=== PATIENT | female | born 1995 | race Caucasian/White ===

== ENCOUNTER 2016-07-24 07:02 | Emergency (ER) | payer BC, OTHER ==
[~2016-07-24] VITALS: Ht 165.1 cm; Wt 75.1 kg
[2016-07-24 07:03] VITALS: Ht 165.1 cm; Wt 75.1 kg
[2016-07-24] MEDS ORDERED: ONDANSETRON INJ 2 MG/ML 2 ML VIAL IV STA (07:21)
[2016-07-24] MEDS ORDERED: KETOROLAC TROMETHAMINE 30 MG/ML VIAL IV STA (07:21)
[2016-07-24] MEDS ORDERED: SODIUM CHLORIDE 0.9% 1000ML 1,000 ML IV STA (07:21)
[2016-07-24 07:27] LABS: COMPLETE YES; EOS % 0.1 %; IG% 0.2 %; LYMPH % 4.1 %; LYMPH ABS # 0.36 K/uL (1.2-3.4); MEAN CELL VOLUME 83.8 fL (80-100); MEAN CORPUSCULAR HEMOGLOBIN 29.6 pg (25-34); MEAN CORPUSCULAR HGB CONC 35.3 g/dl (32-36); MEAN PLATELET VOLUME 11.6 fL (7.4-10.4); MONO % 4.6 %; PLATELET COUNT 202 K/uL (130-400); RED BLOOD COUNT 5.13 M/uL (4.2-5.4)
[2016-07-24 07:43] LABS: BUN/CREATININE RATIO 25.7 (10-20); CALCIUM 9.2 mg/dl (8.5-10.1); CREATININE 0.69 mg/dl (0.60-1.20)
[2016-07-24] MEDS ORDERED: PROM25TA9 PO (08:17)
--- NOTE | 2016-07-24 08:35 | EMERGENCY ROOM VISIT NOTE ---
History First contact with patient: 07:11 Chief Complaint: VOMITING Stated Complaint: VOMITING,DIARRHEA SINCE 10PM Nursing Triage Summary: Patient reports n/v/d since 2229 last night. Denies any pain History of Present Illness The patient is a 20 year old female who presents to the Emergency Room with complaints of approximately 8 hours of nausea, vomiting and watery diarrhea. The patient reports that her symptoms started around 10:30 PM last evening. She has had vomiting approximately every 30 minutes. She reports feeling very dehydrated. She has not noticed any blood in her stools or vomitus. She did feel feverish around 9 PM. The patient just returned from a cruise to [place]. Her parents were with her, and the parents deny any current symptoms. She denies any other known sick contacts. She currently also reports dizziness, weakness, fatigue and lightheadedness. The patient denies . She denies any abdominal pain, back pain, chest pain, cough, shortness of breath, neck pain or headache. Review of Systems HEENT: Denies visual problems, hearing loss, tinnitus. Denies difficulty swallowing or oral lesions. PULMONARY: Denies cough, shortness of breath, sputum production or hemoptysis. CARDIOVASCULAR: Denies chest pain, palpitations, dyspnea on exertion, orthopnea or peripheral edema. GASTROINTESTINAL: See history of present illness. GENITOURINARY: Denies dysuria, frequency, urgency or nocturia. NEUROLOGIC: Denies history of epilepsy, CVA, TIA or chronic headaches. MUSCULOSKELETAL: Denies history of joint tenderness/swelling. SKIN: Denies rashes or lesions. PSYCHIATRIC: Denies history of depression or mental illness. ENDOCRINE: Denies history of diabetes or thyroid disorders. Past Medical/Surgical History Medical Problems: (1) No significant past medical history Surgical Problems: (1) History of tonsillectomy and adenoidectomy Family History Unremarkable Social History Smoking Status: Never Smoker Alcohol Use: none Marital Status: single Occupation Status: [employer] student Current/Historical Medications Scheduled PRN Promethazine Hcl (Phenergan), 25 MG PO Q6H PRN for Nausea Allergies Coded Allergies: No Known Allergies (Unverified , 07/24/16) Physical Exam Vital Signs Date Time Temp Pulse Resp B/P Pulse Ox O2 Delivery O2 Flow Rate FiO2 07/24/16 08:01 92 16 103/60 98 Room Air 07/24/16 07:03 37.1 126 20 107/74 97 Room Air Physical Exam CONSTITUTIONAL: Healthy and well nourished. Alert and oriented X 3 with positive affect. Patient does not appear in any acute distress on exam. HEENT: Normocephalic, atraumatic. Pupils equal, round and reactive. Ears and nares are clear. No scleral icterus or conjunctival injection/pallor. OROPHARYNX: Mucous membranes are dry. No tonsillar hypertrophy or exudates. NECK: Full active range of motion without discomfort. LYMPHATICS: No adenopathy appreciated. RESPIRATORY: Clear to auscultation bilaterally with no wheezing, crackles, rhonchi or stridor. CARDIOVASCULAR: Regular rate and rhythm with no murmurs, rubs or gallops. GASTROINTESTINAL: Bowel sounds present in all quadrants. Abdomen is soft and nontender to palpation. Knee CVA tenderness. MUSCULOSKELETAL: Full range of motion of all joints without discomfort. INTEGUMENTARY: No rash or other significant dermatologic conditions noted. HEMATOLOGIC: No ecchymosis or petechiae. NEUROLOGIC: No focal neurologic deficits noted. Medical Decision & Procedures Laboratory Results 07/24/16 07:20 Red Blood Count 5.13, Mean Corpuscular Volume 83.8, Mean Corpuscular Hemoglobin 29.6, Mean Corpuscular Hemoglobin Concent 35.3, Mean Platelet Volume 11.6, Neutrophils (%) (Auto) 91.0, Lymphocytes (%) (Auto) 4.1, Monocytes (%) (Auto) 4.6, Eosinophils (%) (Auto) 0.1, Basophils (%) (Auto) 0.0, Neutrophils # (Auto) 7.91, Lymphocytes # (Auto) 0.36, Monocytes # (Auto) 0.40, Eosinophils # (Auto) 0.01, Basophils # (Auto) 0.00 07/24/16 07:20 Test 07/24/16 07:20 07/24/16 07:30 White Blood Count 8.70 K/uL (4.8-10.8) Red Blood Count 5.13 M/uL (4.2-5.4) Hemoglobin 15.2 g/dL (12.0-16.0) Hematocrit 43.0 % (37-47) Mean Corpuscular Volume 83.8 fL (80-100) Mean Corpuscular Hemoglobin 29.6 pg (25-34) Mean Corpuscular Hemoglobin Concent 35.3 g/dl (32-36) Platelet Count 202 K/uL (130-400) Mean Platelet Volume 11.6 fL (7.4-10.4) Neutrophils (%) (Auto) 91.0 % Lymphocytes (%) (Auto) 4.1 % Monocytes (%) (Auto) 4.6 % Eosinophils (%) (Auto) 0.1 % Basophils (%) (Auto) 0.0 % Neutrophils # (Auto) 7.91 K/uL (1.4-6.5) Lymphocytes # (Auto) 0.36 K/uL (1.2-3.4) Monocytes # (Auto) 0.40 K/uL (0.11-0.59) Eosinophils # (Auto) 0.01 K/uL (0-0.5) Basophils # (Auto) 0.00 K/uL (0-0.2) RDW Standard Deviation 37.8 fL (36.4-46.3) RDW Coefficient of Variation 12.3 % (11.5-14.5) Immature Granulocyte % (Auto) 0.2 % Immature Granulocyte # (Auto) 0.02 K/uL (0.00-0.02) Anion Gap 12.0 mmol/L (3-11) Est Creatinine Clear Calc Drug Dose 130.8 ml/min Estimated GFR () 144.2 Estimated GFR (Non- 124.4 BUN/Creatinine Ratio 25.7 (10-20) Calcium Level 9.2 mg/dl (8.5-10.1) Total Bilirubin 0.9 mg/dl (0.2-1) Direct Bilirubin 0.2 mg/dl (0-0.2) Aspartate Amino Transf (AST/SGOT) 23 U/L (15-37) Alanine Aminotransferase (ALT/SGPT) 31 U/L (12-78) Alkaline Phosphatase 56 U/L (45-117) Total Protein 7.5 gm/dl (6.4-8.2) Albumin 3.8 gm/dl (3.4-5.0) Lipase 105 U/L (73-393) Urine Test NEG (NEG) The above labs were reviewed and were grossly normal. Urine is negative. Urine dip was normal. Stool studies were ordered, but the patient was unable to provide a stool sample. Medications Administered Medications (Trade) Dose Ordered Sig/Celso Route Start Time Stop Time Status Last Admin Dose Admin Ketorolac Tromethamine 30 mg 30 mg NOW STAT IV 07/24/16 07:21 07/24/16 07:22 DC 07/24/16 07:27 30 MG Sodium Chloride (Nss 1000ml) 1,000 ml @ 999 mls/hr Q1H1M STAT IV 07/24/16 07:21 07/24/16 08:21 DC 07/24/16 07:28 999 MLS/HR Ondansetron HCl (Zofran Inj) 4 mg NOW STAT IV 07/24/16 07:21 07/24/16 07:22 DC 07/24/16 07:25 4 MG Procedure 1. IV hydration: The patient received a liter normal saline bolus 2. IV medications: Toradol 30 mg and Zofran 4 mg IVP ED Course Patient history and physical exam were performed. Nurse's notes were reviewed. Vital signs were reviewed. The patient is tachycardic at 126 bpm. She is afebrile and normotensive. IV access was established, and labs were drawn. The patient was hydrated with normal saline, and received IV medications as discussed in the previous Procedure section. Review of labs shows no significant abnormalities. The patient reported significant reduction of her symptoms, and requested discharge home. The patient was instructed to rest and remain well-hydrated over the next few days. Tylenol as needed for any developing pain or fever. Loperamide as needed for diarrhea. She was instructed to follow-up with her family doctor if symptoms are not improving within the next 3-4 days. Return to the emergency Department for uncontrollable vomiting, inability to remain hydrated, developing high fever, bloody stool or other concerning symptoms. The patient was happy with plan of care, and denied any significant symptoms at the time of discharge. Medical Decision The patient presents to the emergency department with abrupt onset of nausea, vomiting and watery diarrhea. I do suspect gastroenteritis. The question is if this could possibly be a normal iris infection given that the family was recently on a cruise. The parents at this time are currently asymptomatic. The patient is afebrile and has no leukocytosis. She has no laboratory studies to suggest hepatitis, pancreatitis or cholecystitis. Her abdominal exam is benign, therefore I do not suspect a surgical abdomen. She has no CVA tenderness or urine dip findings to suggest UTI or pyelonephritis. Impression Primary Impression: Gastroenteritis Departure Information Prescriptions Promethazine Hcl (Phenergan) 25 Mg Tab 25 MG PO Q6H Y for Nausea, #15 TAB Prov: Yoel Morrison PA 07/24/16 Referrals No Doctor, Assigned (PCP) Patient Instructions [facility]
[2016-07-24 08:36] VITALS: BP 103/60; PULSE 92; TEMP 36.7; O2SAT 98
== END 2016-07-24 08:36 | disposition home or self-care (01) ==
LOC: C.EDB 07:03
DX: K52.9 Noninfective gastroenteritis and colitis, unspecified (principal); Z98.890 Other specified postprocedural states